=== PATIENT | male | born 1980 | race Caucasian/White ===

== ENCOUNTER 2016-10-18 16:22 | Inpatient (IN) | payer OTHER ==
[~2016-10-18] VITALS: Ht 193 cm; Wt 131.0 kg
[~2016-10-18 16:22] MED LIST: LORTAB 5-325 M1 EACH PO
[2016-10-18 17:35] LABS: BASOPHIL COUNT 0.1 K/uL (0-0.1); EOSINOPHIL (%) 0.9 % (0-5); EOSINOPHIL COUNT 0.1 K/uL (0-0.3); HEMATOCRIT 45.8 % (38.0-50.0); IMMATURE GRANULOCYTE (%) 0.3 % (0.0-0.7); INSTRUMENT ABS NEUTROPHIL CT 6.4 K/uL; LYMPHOCYTE COUNT 1.7 K/uL (1.0-2.8); MCH 28.1 PG (29.0-34.0); MCHC 34.1 G/DL (30.0-36.0); MCV 82.4 FL (86-99); MEAN PLAT.VOLUME 11.4 uM^3 (9.0-12.4); MONOCYTE (%) 8.1 % (3-12); MONOCYTE COUNT 0.7 K/uL (0-0.8); NEUTROPHIL (%) 71.6 % (45-76); NEUTROPHIL COUNT 6.4 K/uL (1.8-6.4); PLATELET COUNT 277 K/uL (156-360); RBC DIS.WIDTH-CV 13.2 % (11.8-14.6); RBC DIS.WIDTH-SD 39.8 % (39-53); RED BLOOD COUNT 5.56 M/uL (4.00-5.50); WHITE BLOOD COUNT 8.9 K/uL (4.1-10.2)
[2016-10-18 17:37] LABS: ADD MIUA? NO; BILIRUBIN NEGATIVE; BLOOD NEGATIVE; COLOR YELLOW ((YELLOW)); GLUCOSE (STRIP) NEGATIVE; KETONES NEGATIVE; LEUKOCYTES NEGATIVE; NITRITE NEGATIVE; PROTEIN (STRIP) 30; SPECIFIC GRAVITY 1.027 (1.000-1.030); UROBILINOGEN 0.2 MG/DL (0.2-1.0)
[2016-10-18 17:50] LABS: CHLORIDE 102 mEq/L (99-109); POTASSIUM 4.4 mEq/L (3.7-5.4); SODIUM 137 mEq/L (136-147)
[2016-10-18 17:53] LABS: GLUCOSE 98 mg/dL (70-99)
[2016-10-18 17:54] LABS: ANION GAP 11 MEQ/L (2-14); TOTAL BILIRUBIN 1.2 mg/dL (0.0-1.0)
[2016-10-18 17:56] LABS: ALKALINE PHOSPHATASE 76 IU/L (3-129); GFR ESTIMATE (CALCULATED) > 59 mL/min/
[2016-10-18 17:57] LABS: UREA NITROGEN (BUN) 12 mg/dL (9-23)
[2016-10-18 17:58] LABS: DIRECT BILIRUBIN 0.3 mg/dL (0.0-0.3)
[2016-10-18 18:00] LABS: LIPASE 31 U/L (1.0-51.0)
[2016-10-18] MEDS ORDERED: EFFEXOR75 MG PO (19:30)
[2016-10-18] MEDS ORDERED: SUBOXONE 2 MG-1 EACH SL (19:30)
[2016-10-18 21:18] VITALS: BP 134/84
[2016-10-19 03:41] VITALS: BP 133/76
[2016-10-19 07:43] VITALS: BP 126/70
[2016-10-19 07:43] LABS: HEMATOCRIT 40.5 % (38.0-50.0); MCH 29.4 PG (29.0-34.0); MCHC 34.8 G/DL (30.0-36.0); MCV 84.6 FL (86-99); MEAN PLAT.VOLUME 11.9 uM^3 (9.0-12.4); PLATELET COUNT 239 K/uL (156-360); RBC DIS.WIDTH-CV 13.1 % (11.8-14.6); RBC DIS.WIDTH-SD 40.3 % (39-53); RED BLOOD COUNT 4.79 M/uL (4.00-5.50)
[2016-10-19 08:24] LABS: ALKALINE PHOSPHATASE 65 IU/L (3-129); ANION GAP 8 MEQ/L (2-14); CHLORIDE 106 MEQ/L (99-109); GFR ESTIMATE (CALCULATED) > 59 mL/min/; GLUCOSE 115 mg/dL (70-99); POTASSIUM 4.1 MEQ/L (3.7-5.4); SAMPLE HEMOLYSIS CHECK 0; SAMPLE ICTERIC CHECK 0; SAMPLE LIPEMIA CHECK 0; SODIUM 138 MEQ/L (136-147); TOTAL BILIRUBIN 0.9 MG/DL (0.0-1.0); UREA NITROGEN (BUN) 17 mg/dL (9-23)
[2016-10-19 16:02] VITALS: BP 150/71
[2016-10-19 23:52] VITALS: BP 129/66
[2016-10-20 06:13] LABS: CHLORIDE 108 mEq/L (99-109); POTASSIUM 4.1 mEq/L (3.7-5.4); SODIUM 138 mEq/L (136-147)
[2016-10-20 06:15] LABS: GLUCOSE 95 mg/dL (70-99)
[2016-10-20 06:16] LABS: ANION GAP 8 MEQ/L (2-14)
[2016-10-20 06:19] LABS: GFR ESTIMATE (CALCULATED) > 59 mL/min/
[2016-10-20 06:20] LABS: UREA NITROGEN (BUN) 17 mg/dL (9-23)
[2016-10-20 08:33] VITALS: BP 107/65
[2016-10-20 15:37] VITALS: BP 145/75
== END 2016-10-20 18:41 | disposition home or self-care (01) | DRG 386 ==
LOC: EME 16:22 → 5SOUTH 19:53 → EDOF 19:53 → 5SOUTH 21:03
PROVIDERS: Internal Medicine; Physician Assistant; Physician Assistant Medical
DX: K50.012 Crohn's disease of small intestine with intestinal obstruction (principal); F43.10 Post-traumatic stress disorder, unspecified; F11.20 Opioid dependence, uncomplicated; F17.210 Nicotine dependence, cigarettes, uncomplicated; Z90.49 Acquired absence of other specified parts of digestive tract
CPT/HCPCS: 74000; 74020; 74177; 80048; 80053; 80076; 81003; 83605; 83690; 85025; 85027; 99281; 99284; J0572; J1644; J1885; J2930; J7030; S0028